=== PATIENT | female | born 1975 | race Caucasian/White ===

== ENCOUNTER 2016-12-10 05:44 | Observation (INO) | payer BC ==
[~2016-12-10] VITALS: Ht 170.2 cm; Wt 107.0 kg
[~2016-12-10 05:44] MED LIST: ACET500T33 PO
[2016-12-10] MEDS ORDERED: CEFOXITIN 1GM IVPB FOR OMNI 50 ML IV PRN (06:00)
[2016-12-10 06:17] LABS: NEG OBC UR NEG; POS OBC UR POS
[2016-12-10] MEDS ORDERED: PROPOFOL 20 ML IV ONE (06:45)
[2016-12-10] MEDS ORDERED: DEXAMETHASONE SOD PHOS 20 MG/5 ML VIAL. ONE (06:45)
[2016-12-10] MEDS ORDERED: ONDANSETRON PF 4 MG/2 ML VIAL. ONE (06:45)
[2016-12-10] MEDS ORDERED: MIDAZOLAM HCL 2 MG/2 ML VIAL. ONE (06:46)
[2016-12-10] MEDS ORDERED: ROCURONIUM 50 MG/5 ML VIAL. ONE (06:46)
[2016-12-10] MEDS ORDERED: FENTANYL PF 250 MCG/5 ML VIAL. ONE (06:46)
[2016-12-10 06:55] LABS: BASO # 0.2 x10^3/uL (0.0-0.2); BASO % 3 % (0-3); EOS % 7 % (0-3); HEMATOCRIT 38.8 % (36.0-47.0); HEMOGLOBIN 12.8 g/dL (12.0-15.5); LYMPH # 1.5 x10^3/uL (1.0-4.8); LYMPH % 22 % (24-48); MEAN CORPUSCULAR HEMOGLOBIN 28 pg (25-35); MEAN CORPUSCULAR HGB CONC 33 g/dL (31-37); MEAN CORPUSCULAR VOLUME 84 fL (79-100); MONO % 8 % (0-9); NEUT % 60 % (31-73); PLATELET COUNT 293 x10^3/uL (140-400); RED BLOOD COUNT 4.61 x10^6/uL (3.50-5.40); RED CELL DISTRIBUTION WIDTH 13.9 % (11.5-14.5); WHITE BLOOD COUNT 6.7 x10^3/uL (4.0-11.0)
[2016-12-10] MEDS ORDERED: IV RINGERS,LACTATED 1000ML 1,000 ML IV SCH (07:00)
[2016-12-10] MEDS ORDERED: PROCHLORPERAZINE 10 MG/2 ML VIAL. IV PRN (07:00)
[2016-12-10] MEDS ORDERED: MORPHINE SULFATE 2 MG/ML DISP.SYRIN. IV PRN ×2 (07:00→09:15)
[2016-12-10] MEDS ORDERED: ONDANSETRON PF 4 MG/2 ML VIAL. IV PRN ×2 (07:00→09:15)
[2016-12-10] MEDS ORDERED: FENTANYL PF 100 MCG/2 ML VIAL. IV PRN ×2 (07:00)
[2016-12-10] MEDS ORDERED: LIDOCAINE 1% 1 ML SYRINGE. ID PRN (07:00)
[2016-12-10] MEDS ORDERED: HYDROMORPHONE 2 MG/ML VIAL. IV PRN (07:00)
[2016-12-10] MEDS ORDERED: BUPIVACAINE-EPI 0.25%-1:200000 MPF 30 ML VIAL. ONE (07:06)
[2016-12-10] MEDS ORDERED: ESTROGENS, CONJ VAGINAL CREAM 30GM TUBE. ONE (07:06)
[2016-12-10] MEDS ORDERED: METHYLENE BLUE 1% 1 ML VIAL. ONE (07:06)
[2016-12-10] MEDS ORDERED: NEOSTIGMINE METHYLSULFATE 5 MG/5 ML SYRINGE. ONE (07:52)
[2016-12-10] MEDS ORDERED: GLYCOPYRROLATE 1 MG/5 ML VIAL. ONE (07:52)
--- NOTE | 2016-12-10 09:11 | PDOC ---
BRIEF OPERATIVE NOTE Date: Dec 10, 2016 Pre-Op Diagnosis menorrhagia, fibroids Post-Op Diagnosis same plus mild omental adhesive disease Procedure Performed [facility]AV[facility] bilateral salpingectomy with adhesiolysis Surgeon Dr. Mery Anderson Shop Technician Dr. Sandra Diaz Anesthesiologist Dr. Lane Anesthesia Type: General Blood Loss 30cc IV Fluid 600cc Urine Output 230cc clear via diaz catheter Specimens Obtained cervix, uterus, bilateral tubes Findings omental adhesions to anterior abdominal wall and the round ligament, anterior uteurs and bladder Complications none Additional Remarks [id number] MERY ANDERSON MD Dec 10, 2016 09:11
[2016-12-10] MEDS ORDERED: DIPHENHYDRAMINE HCL 25 MG CAPSULE PO PRN (09:15)
[2016-12-10] MEDS ORDERED: LACTULOSE 20 GM/30 ML SOLUTION. PO PRN (09:15)
[2016-12-10] MEDS ORDERED: 0.9 % SODIUM CHLORIDE 10 ML DISP.SYRIN. IV PRN (09:15)
[2016-12-10] MEDS ORDERED: DIPHENHYDRAMINE 50 MG/ML VIAL IV PRN (09:15)
[2016-12-10] MEDS ORDERED: ZOLPIDEM 5 MG TABLET. PO PRN (09:15)
[2016-12-10] MEDS ORDERED: SIMETHICONE 80 MG TAB.CHEW PO PRN (09:15)
[2016-12-10] MEDS ORDERED: HYDROCODONE/APAP 5/325MG TABLET. PO PRN (09:15)
[2016-12-10] MEDS ORDERED: NALOXONE 0.4 MG/ML VIAL. IV PRN (09:15)
[2016-12-10] MEDS ORDERED: MAG HYDROX/ALUMINUM HYD/SIMETH 30 ML ORAL.SUSP PO PRN (09:15)
[2016-12-10] MEDS ORDERED: CALCIUM CARBONATE 500 MG TAB.CHEW PO PRN (09:15)
[2016-12-10] MEDS ORDERED: MAGNESIUM HYDROXIDE 2,400 MG/30 ML ORAL.SUSP. PO PRN (09:15)
[2016-12-10] MEDS ORDERED: OXYCODONE/APAP 5/325 TABLET. PO PRN (09:15)
[2016-12-10 10:15] VITALS: BP 97/64
[2016-12-10 11:00] VITALS: BP 102/66
[2016-12-10 11:30] VITALS: BP 112/73
[2016-12-10 12:00] VITALS: BP 113/66
--- NOTE | 2016-12-10 14:12 | OP ---
DATE OF SURGERY: 12/10/2016 PREOPERATIVE DIAGNOSES: Menorrhagia and fibroids. POSTOPERATIVE DIAGNOSES: Menorrhagia and fibroids with mild omental adhesive disease. SURGERY: Laparoscopic-assisted vaginal hysterectomy, bilateral salpingectomy with adhesiolysis. SURGEONS: Danny Anderson MD and Sandra Diaz MD. ANESTHESIA: General. ANESTHESIOLOGIST: ESTIMATED BLOOD LOSS: 30 mL. IV FLUIDS: 600 mL of crystalloid. URINE OUTPUT: 230 mL clear via Moore catheter. SPECIMEN REMOVED: Cervix, uterus, bilateral tubes. FINDINGS: Omental adhesions to the anterior abdominal wall. The round ligaments on both sides, anterior uterus and bladder, posterior was clear and bowel looked grossly normal and the upper quadrant was grossly normal. COMPLICATIONS: None. DESCRIPTION OF PROCEDURE: This patient was taken to the operating room where general anesthesia was placed. The patient was placed in a dorsal lithotomy position in [facility]. The patient's abdomen and vagina had then prepped and draped in the normal sterile fashion and a Moore catheter had been inserted under sterile technique. At this point, a timeout was performed. After doing that, a bivalve speculum was placed in the patient's vagina. A single tooth tenaculum was used to grasp the anterior lip of the cervix. A 10 mL of 0.25% Marcaine with epinephrine was used to circumferentially inject around the cervix; this was for both hemodissection and hemostatic purposes later. At this point, the Valtchev uterine manipulator was placed through the endocervical os, locked on the single tooth tenaculum and the bivalve speculum was then removed. Top gloves were discarded and changed. Attention was then turned to the abdomen where a small infraumbilical skin incision was made over a previous existing scar. A curved Nadja was used to dissect through the subcuticular layer to the fascia. The 5-mm Visiport was used to directly enter the abdominal cavity. Opening patient pressure was 3-4 mmHg. At this point, carbon dioxide gas was used to then appropriately insufflate the abdominal cavity to maintain a pressure of 15 mmHg. Initial inspection revealed mild omental adhesion to the anterior abdominal wall. The patient was placed in Trendelenburg. The right and left lower quadrant ports were placed under direct visualization without difficulty after transilluminating the abdominal wall, making a small incision and using the 5-mm Ethicon disposable atraumatic ports. Once this was done, the LigaSure Advance was used to cauterize and cut the omental adhesion on the anterior abdominal wall to see down in the pelvis. The omentum would not fall back, it was actually adhesed from round ligament down over the anterior uterus to the bladder peritoneum and then all the way around, so it had to be taken down sharply. Once it was done, now the uterus was free, the posterior was free, and the ovaries looked good, and she did wish to retain both normal ovaries. So at this point, once the omental adhesions were taken down with the LigaSure Advance with the monopolar tip and of course cauterizing and cutting, the left round ligament was identified. It was cauterized and cut in a stepwise fashion, creating a window in the mesosalpinx, going down and making the bladder flap sharply. There were some bladder adhesions as well from her previous section, but these were taken down with the monopolar tip sharply and then were able to be teased down and pulled down with the [place] once it had been released from the uterus. The left tube was elevated and crossing above the ovary below the tube and the mesosalpinx. The tube was amputated and crossing the uterine ovarian pedicle on the left as well, leaving the normal left ovary per patient's request. Going down and getting the uterine vessels and going down to the cardinal and broad ligaments down to the level of the uterosacrals later, crossing contralaterally and staying vertical hugging the cervix. This was done all exactly the same on the right side, first starting at the round ligament and cauterizing and cutting it, going down and meeting the bladder flap anteriorly elevating the right tube and ovary. Again, the right ovary was normal, staying above the ovary below the tube, cauterizing it and then crossing the uterine ovarian pedicle on the right, again leaving there normal right ovary. Same thing going down and skeletonizing to the level of the uterine vessels, obtaining those, the uterus was blanching at this point and then again crossing contralaterally and going through the cardinal and broad ligaments down to the level of the uterosacral. Once this was done and the uterus was free, all instruments were removed from the abdomen and attention was turned vaginally. At this point, the Valtchev and single tooth were removed. A weighted speculum was placed in the patient's vagina. Thyroid Jayden clamps were placed on the anterior and posterior lips of the cervix respectively. A scalpel was used to make a circumferential incision in the cervix. An open Ray-Raad 4 x 4 was used to gently push up the anterior bladder peritoneum ensuring the anterior cul-de-sac. At this point, the cervix was elevated and the posterior cul-de-sac was sharply entered with the Roman scissors. A #0 Vicryl stitch was used to secure the posterior peritoneum to the vaginal cuff here and was tagged with a curved Nadja clamp and the needle was cut and passed off. The short weighted speculum was removed and the long weighted Omkar speculum was placed inside this posterior cul-de-sac now. Curved Colby clamps x 2 were placed on the left uterosacral ligament. They were doubly clamped with curved Heaneys, cut with Roman scissors, and suture ligated x 2 with #0 Vicryl. The second one was taken through the vaginal cuff securing the uterosacral ligament to the vaginal cuff and it was tagged with a straight Nadja clamp and the needle was cut and passed off. This was done exactly the same on the patient's right side, double clamping the uterosacrals with curved Colby's, cutting with Roman scissors, suture ligating x 2 with #0 Vicryl and taking the second one through the vaginal cuff securing the uterosacral ligament to the vaginal cuff and cutting the needle off and tagging it with a straight Nadja clamp. The left side was completely free at this point. There was a remaining pedicle on the right side, so the right angle clamp was taken around the remaining pedicle delineating this and the vaginal LigaSure Max was used to cauterize that. Once it was cauterized, there were a few anterior filmy adhesions from the previous , these were taken down, I could get a finger around them and under direct visualization. The cervix, uterus, and bilateral tubes, one tube was actually pulled off and passed off during the manipulation process, but I believe it was the left tube. At the cervix, uterus and right tube were delivered in total and passed off for permanent pathology, but everything is being sent together; uterus, cervix, and bilateral tubes. The anterior bladder Ray-Raad was taken out from the anterior cul-de-sac. A sponge stick was used to examine the pedicles, they appear to be hemostatic. The long weighted speculum was removed and replaced with the short weighted speculum. An Allis was used to grasp the anterior bladder peritoneum. A full length 2-0 Vicryl was taken through the anterior bladder peritoneum, left uterosacral ligament, posterior peritoneum, and right uterosacral ligament, thus closing the peritoneum in a purse-string like fashion. Once this was done, the uterosacral tags on both sides were clipped and a full length 2-0 Vicryl was used to close the cuff in an anterior to posterior running locked fashion. It was hemostatic. Once this was done, all instruments were removed from the vagina, old gloves were discarded and changed, and attention was turned back abdominal for a second look. At this point, a second look from above was performed, irrigating copiously with saline. It was completely hemostatic and dry clear fluid. The right and left cul-de-sac and gutters were clear, everything looked good. Tisseel was opened and already, so we did spray it over the ovarian pedicles and the vaginal cuff, but there was no bleeding. The right and left lower quadrant ports were taken out under direct visualization. These two were hemostatic. Gas was released from the umbilical port. All three port sites were closed with 4-0 nylon at the level of the skin and injected with a total of 10 mL of 0.25% Marcaine with epinephrine. DANNY ANDERSON MD DR: SILVERIO/vincenzo JOB#: [id number] / [id number]
[2016-12-10] MEDS ORDERED: OXYC-323 PO ×2 (14:52→14:54)
[2016-12-10 15:01] VITALS: BP 121/62
--- NOTE | 2016-12-12 08:32 | PATHOLOGY ---
PATHOLOGY REPORT * * * * * * * * FINAL DIAGNOSIS: Uterus, attached right fallopian tube, and detached left fallopian tube, laparoscopic-assisted vaginal hysterectomy with bilateral salpingectomy: - Adenomyosis, uterine corpus, subbasal, with mild myometrial hypertrophy (uterine weight 118 grams). 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 - Nabothian cysts, cervix, few, small. - Late secretory endometrium. - Paratubal cyst and cystic W[place]ard rests of right fallopian tube. - Left fallopian tube showing no pathologic abnormalities. COMMENT: There is no evidence of malignancy. (JPM:csd; d/t: 12/11/2016) REPORT ELECTRONICALLY SIGNED BY: Charles Felipe M.D. DATE/TIME: 12/12/2016 08:32 * * * * * * * * GROSS PATHOLOGY: The specimen is received in formalin labeled "Seda Meza, uterus, cervix, bilateral tubes". Received is a 118 g, 9.5 x 5.5 x 5.4 cm uterus with attached cervix, attached right fallopian tube weighing 3 g, and detached left fallopian tube weighing 2 g. The uterine serosa is pink-ghosh, smooth and glistening in appearance. The 1.0 cm cervical os is surrounded by pink-ghosh, smooth to slightly disrupted ectocervical mucosa. The uterus is oriented using the peritoneal reflection and the anterior paracervical margin is inked black. The uterus is opened laterally to reveal a pale ghosh, corrugated endocervical canal measuring 2.9 cm in length. The endometrial cavity is triangular measuring 5.6 cm in length by 3.1 cm in width. The endometrium is pale ghosh, glistening in appearance and measures up to 0.2 cm in thickness. Serial sectioning reveals a ghohs-pink, trabeculated myometrium measuring up to 2.4 cm in thickness displaying a single cystic-appearing subserosal fibroid measuring 1.8 cm. The 2 g detached left fimbriated fallopian tube measures 6.9 cm in length by up to 0.7 cm in diameter. The serosal surface is inked black. Sectioning reveals pinpoint to patent lumen and the fallopian tube displays a plastic ligation ring. The 3 g attached right fimbriated fallopian tube measures 5.6 cm in length by up to 0.7 cm in diameter with an attached paratubal cyst measuring 0.7 cm filled with clear fluid. Sectioning reveals a pinpoint to patent lumen and the fallopian tube displays a plastic ligation ring. The specimen is submitted representatively as follows: A1 12:00 cervix A2 6:00 cervix A3 anterior endomyometrium A4 posterior endomyometrium A5 sales representative livestock section of subserosal fibroid A6 sales representative livestock sections of left and right fallopian tubes, differentially inked. (CAA; 12/10/2016) INITIAL CPT CODE(S): A; 37880 Professional services [place] [address] Technical services performed by [facility] at [address] [place] [address], [address], [place] [address]. SPECIMEN(S) RECEIVED: A.Uterus, cervix, bilateral tubes CLINICAL HISTORY: Menorrhagia, fibroids PATIENT: SEDA MEZA /AGE: 502/21/1975 (Age: 41) PATIENT #: [id number] ALT CASE #: SPECIMEN COLLECTION DATE: 12/10/2016 SPECIMEN RECEIVED DATE: 12/10/2016 [facility] - [id number] [place] [id number] - PHONE: [phone] * * * END OF REPORT * * *
== END 2016-12-10 15:54 | disposition home or self-care (01) ==
LOC: SURG 05:44 → 3 NORTH 09:29
PROVIDERS: ADMIT Obstetrics & Gynecology; ATTEND Obstetrics & Gynecology
DX: D25.9 Leiomyoma of uterus, unspecified (principal); N92.0 Excessive and frequent menstruation with regular cycle; K66.0 Peritoneal adhesions (postprocedural) (postinfection)
CPT/HCPCS: 36415; 58550; 81025; 85014; 85018; 85027; 86850; 86900; 86901; C1769; G0378; G0379; J0694; J1100; J2250; J2704; J2710; J3010; J3490; J7030; J2405; Q9968